=== PATIENT | female | born 1970 | race African-American/Black ===

== ENCOUNTER 2017-02-27 22:53 | Emergency (ER) | payer OTHER ==
[~2017-02-27] VITALS: Ht 162.6 cm; Wt 49.6 kg
[~2017-02-27 22:53] MED LIST: ANTI-DIARRHEA2 MG PO; BENTYL20 MG PO; BENZONATATE100 MG PO; CIPRO250 MG PO; COLACE100 MG PO; DILAUDID4 MG PO; EFFEXOR XR150 MG PO; GUAIFENESIN600 M1 PO; LOW-OGESTREL1 TABLET PO; MEGACE20 MG PO; MOTRIN600 MG PO; MOTRIN800 MG PO; NAPROSYN500 MG PO; NAPROXEN500 MG PO; ONDANSETRON HCL4 MG PO; OXYCODONE HCL15 MG PO; PREDNISONE10 M1 PO; PREDNISONE20 MG PO; TRAMADOL HCL50 MG PO; ULTRAM50 MG PO; VALIUM5 MG PO; VENTOLIN HFA18 GM IH; VOLTAREN75 MG PO; ZITHROMAX Z-PA250 MG PO; ZOFRAN ODT4 MG PO; ZOFRAN8 MG PO
[2017-02-27 23:06] VITALS: BP 118/96
[2017-02-28 01:05] LABS: INFLUENZA A VIRAL ANTIGEN NEGATIVE; INFLUENZA B VIRAL ANTIGEN NEGATIVE
[2017-02-28] MEDS ORDERED: DELTASONE20 M1 PO (01:11)
[2017-02-28] MEDS ORDERED: PHENERGAN-CODE120 ML PO (01:11)
[2017-02-28] MEDS ORDERED: LEVAQUIN500 MG PO (01:11)
[2017-02-28] MEDS ORDERED: PROAIR HFA8.5 GM IH (01:11)
[2017-02-28] MEDS ORDERED: LEVOTHYROXINE25 MCG PO (02:02)
== END 2017-02-28 02:02 | disposition home or self-care (01) ==
LOC: EME 22:53 → EXP 22:53
PROVIDERS: Physician Assistant
DX: J40 Bronchitis, not specified as acute or chronic (principal); J45.20 Mild intermittent asthma, uncomplicated; F17.200 Nicotine dependence, unspecified, uncomplicated
CPT/HCPCS: 87502; 94640; 99281; 99284; J7512

== ENCOUNTER 2017-05-22 00:17 | Emergency (ER) | payer OTHER ==
[~2017-05-22] VITALS: Ht 162.6 cm; Wt 52.9 kg
[~2017-05-22 00:17] MED LIST changes: +DELTASONE20 M1 PO; +LEVAQUIN500 MG PO; +LEVOTHYROXINE25 MCG PO; +PHENERGAN-CODE120 ML PO; +PROAIR HFA8.5 GM IH
[2017-05-22 00:49] LABS: MCH 27.2 PG (29.0-34.0); MCHC 33.3 G/DL (30.0-36.0); MCV 81.7 FL (83-99); MEAN PLAT.VOLUME 9.5 uM^3 (9.5-12.4); PLATELET COUNT 245 K/uL (156-360); RBC DIS.WIDTH-CV 14.8 % (11.8-14.6); RBC DIS.WIDTH-SD 44.3 % (39-53); RED BLOOD COUNT 4.04 M/uL (3.80-5.20); WHITE BLOOD COUNT 6.3 K/uL (4.1-10.2)
[2017-05-22 01:00] LABS: CHLORIDE 107 mEq/L (99-109); POTASSIUM 3.2 mEq/L (3.7-5.4); SODIUM 140 mEq/L (136-147)
[2017-05-22 01:02] LABS: GLUCOSE 86 mg/dL (70-99)
[2017-05-22 01:03] LABS: ANION GAP 8 MEQ/L (2-14)
[2017-05-22 01:04] LABS: TOTAL BILIRUBIN 0.3 mg/dL (0.0-1.0)
[2017-05-22 01:05] LABS: ALKALINE PHOSPHATASE 67 IU/L (3-129)
[2017-05-22 01:06] LABS: GFR ESTIMATE (CALCULATED) > 59 mL/min/
[2017-05-22 01:07] LABS: UREA NITROGEN (BUN) 11 mg/dL (9-23)
[2017-05-22 01:14] LABS: QUANTITATIVE HCG < 4.0 MIU/ML
[2017-05-22 01:25] LABS: ADD MIUA? YES; BILIRUBIN NEGATIVE; BLOOD NEGATIVE; COLOR STRAW ((YELLOW)); GLUCOSE (STRIP) NEGATIVE; KETONES NEGATIVE; LEUKOCYTES SMALL; NITRITE NEGATIVE; PROTEIN (STRIP) NEGATIVE; SPECIFIC GRAVITY 1.004 (1.000-1.030); UROBILINOGEN 0.2 MG/DL (0.2-1.0)
[2017-05-22 01:31] LABS: BACTERIA NONE SEEN /HPF; EPITHELIAL CELLS 2+ /HPF; MUCUS TRACE /LPF; RED BLOOD CELLS 0-5 /HPF (0-5); UCUL ADDED? YES
[2017-05-22] MEDS ORDERED: ZOFRAN ODT4 MG PO (02:16)
[2017-05-22 02:26] VITALS: BP 126/97
== END 2017-05-22 02:26 | disposition home or self-care (01) ==
LOC: EME 00:17
DX: R10.30 Lower abdominal pain, unspecified (principal); R11.0 Nausea; R14.0 Abdominal distension (gaseous); Z98.890 Other specified postprocedural states; J45.909 Unspecified asthma, uncomplicated; Z98.51 Tubal ligation status; Z72.0 Tobacco use
CPT/HCPCS: 74176; 80053; 81003; 84702; 85027; 87086; 99281; 99283

== ENCOUNTER 2017-06-02 22:21 | Emergency (ER) | payer OTHER ==
[~2017-06-02] VITALS: Ht 162.6 cm; Wt 52.6 kg
[2017-06-02 23:07] LABS: HEMATOCRIT 34.5 % (36.0-46.0); HEMOGLOBIN 11.4 G/DL (11.9-15.5); MCH 26.8 PG (29.0-34.0); PLATELET COUNT 243 K/uL (156-360); RBC DIS.WIDTH-SD 44.4 % (39-53); RED BLOOD COUNT 4.26 M/uL (3.80-5.20); WHITE BLOOD COUNT 6.2 K/uL (4.1-10.2)
[2017-06-02 23:18] LABS: ALBUMIN 4.1 g/dL (3.2-4.8)
[2017-06-02 23:19] LABS: CHLORIDE 109 mEq/L (99-109); POTASSIUM 3.3 mEq/L (3.7-5.4); SODIUM 140 mEq/L (136-147)
[2017-06-02 23:21] LABS: GLUCOSE 90 mg/dL (70-99); TOTAL PROTEIN 7.4 g/dL (6.4-8.3)
[2017-06-02 23:23] LABS: TOTAL BILIRUBIN 0.3 mg/dL (0.0-1.0)
[2017-06-02 23:24] LABS: ALKALINE PHOSPHATASE 80 IU/L (3-129)
[2017-06-02 23:25] LABS: CREATININE 0.8 mg/dL (0.6-1.3); GFR ESTIMATE (CALCULATED) > 59 mL/min/
[2017-06-02 23:26] LABS: AST (GOT) 25 IU/L (2-34); UREA NITROGEN (BUN) 13 mg/dL (9-23)
[2017-06-02 23:27] LABS: ALT (GPT) 24 IU/L (3-49)
[2017-06-02 23:35] LABS: QUANTITATIVE HCG < 4.0 MIU/ML
[2017-06-03 00:48] LABS: APPEARANCE CLEAR ((CLEAR)); BILIRUBIN NEGATIVE; BLOOD MODERATE; COLOR YELLOW ((YELLOW)); GLUCOSE (STRIP) NEGATIVE; KETONES NEGATIVE; LEUKOCYTES NEGATIVE; NITRITE NEGATIVE; PROTEIN (STRIP) NEGATIVE; SPECIFIC GRAVITY 1.013 (1.000-1.030); UROBILINOGEN 0.2 MG/DL (0.2-1.0)
[2017-06-03 00:50] LABS: BACTERIA NONE SEEN /HPF; EPITHELIAL CELLS RARE /HPF; MUCUS TRACE /LPF; RED BLOOD CELLS 0-5 /HPF (0-5); UCUL ADDED? NO; WHITE BLOOD CELLS 0-5 /HPF (0-5)
[2017-06-03] MEDS ORDERED: ZANTAC150 MG PO (02:22)
[2017-06-03] MEDS ORDERED: ZOFRAN ODT4 MG PO (02:22)
[2017-06-03 02:30] VITALS: BP 115/72
== END 2017-06-03 02:31 | disposition home or self-care (01) ==
LOC: EME 22:21
PROVIDERS: Emergency Medicine
DX: K52.9 Noninfective gastroenteritis and colitis, unspecified (principal); E87.6 Hypokalemia; K21.9 Gastro-esophageal reflux disease without esophagitis; J45.909 Unspecified asthma, uncomplicated; F32.9 Major depressive disorder, single episode, unspecified; F41.9 Anxiety disorder, unspecified; Z87.891 Personal history of nicotine dependence; Z91.040 Latex allergy status
CPT/HCPCS: 80053; 81003; 84702; 85027; 87502; 99281; 99284

== ENCOUNTER 2018-01-18 19:44 | Emergency (ER) | payer OTHER ==
[~2018-01-18] VITALS: Ht 162.6 cm; Wt 48.2 kg
[~2018-01-18 19:44] MED LIST changes: +ZANTAC150 MG PO
[2018-01-18] MEDS ORDERED: FLEXERIL10 MG PO (21:41)
[2018-01-18] MEDS ORDERED: NAPROSYN500 MG PO (21:41)
[2018-01-18 22:08] VITALS: BP 133/95
== END 2018-01-18 22:08 | disposition home or self-care (01) ==
LOC: EME 19:44
DX: S16.1XXA Strain of muscle, fascia and tendon at neck level, initial encounter (principal); S39.012A Strain of muscle, fascia and tendon of lower back, initial encounter; V49.40XA Driver injured in collision with unspecified motor vehicles in traffic accident, initial encounter; Y92.410 Unspecified street and highway as the place of occurrence of the external cause; J45.909 Unspecified asthma, uncomplicated; F17.200 Nicotine dependence, unspecified, uncomplicated
CPT/HCPCS: 99281; 99284